=== PATIENT | female | born 1945 | race Caucasian/White ===

== ENCOUNTER 2017-02-11 11:10 | Emergency (ER) | payer MEDICARE ==
[2017-02-22] MEDS ORDERED: CALCIUM500 MG PO (11:48)
[2017-02-22] MEDS ORDERED: PRAVACHOL20 MG PO (11:48)
[2017-02-22] MEDS ORDERED: ASPIRIN EC81 MG PO (11:48)
[2017-02-22] MEDS ORDERED: MAGNESIUM250 M1 PO (11:49)
[2017-02-22] MEDS ORDERED: FISH OIL 1,2001 EAC1 PO (11:49)
--- NOTE | 2017-03-06 21:30 | ER ---
ADMIT: 02/11/2017 RM/LOC: ER [facility] MR#: [id number] [address] [facility] [address] [place] [id number] BETI CLARKE [address] [place] [address] Emergency Room Report SEX: F AGE: 71 : 1945 DATE: 02/11/2017 ADDENDUM: This patient comes into the ER because she had a syncopal episode and fell and cut her chin. She states she became dizzy, passed out and then when she woke up, she vomited. She states she has done this most of her life. Recently had a pacemaker put in and since the pacemaker, has not had syncope again. She denies any pain at this time and states she feels fine. She no longer has any nausea. I wanted to do a cardiac workup on the patient, the patient refused. I told her we could maybe interrogate her pacemaker. She said that she is able to do that at home over the phone and that is what she would like to do. She would only like her chin sewed up. I was concerned about this, I did consult with Dr. Navarro concerning treatment of this patient, he also talked to the patient and explained risks of her passing out and why it would be important to monitor in the ER. She once again refused saying that she had passing out her whole life and this is how she normally feels and would only like us to fix her chin and she will follow up with Dr. Ximena Elena tomorrow. Dr. Navarro also recommended that she call her stroke program coordinator tomorrow as well. To the laceration on the chin, I placed LAT to the area and after 20 minutes, I placed 3 interrupted stitches using 5-0 Prolene. Stitches are to be removed in 5 days. DIAGNOSES: 1. Syncope. 2. 1 cm chin laceration. Please see my T sheet. ALLIE Paige / Raul Navarro MD / modl JOB #: [id number] CC: Raul Navarro MD, Attending Physician Ximena Briggs, Family Physician
== END 2017-02-11 12:15 | disposition home or self-care (01) ==
LOC: ER 11:10
PROC: 0HQ1XZZ Repair Face Skin, External Approach (ICD-10-PCS; principal; 2017-02-11)
DX: S01.81XA Laceration without foreign body of other part of head, initial encounter (principal); R55 Syncope and collapse; Z79.899 Other long term (current) drug therapy; W19.XXXA Unspecified fall, initial encounter; Y92.009 Unspecified place in unspecified non-institutional (private) residence as the place of occurrence of the external cause

== ENCOUNTER 2017-02-20 10:07 | Observation (INO) | payer MEDICARE ==
[~2017-02-20] VITALS: Ht 162.6 cm; Wt 64.8 kg
[2017-02-22] MEDS ORDERED: CALCIUM500 MG PO (11:48)
[2017-02-22] MEDS ORDERED: ASPIRIN EC81 MG PO (11:48)
[2017-02-22] MEDS ORDERED: PRAVACHOL20 MG PO (11:48)
[2017-02-22] MEDS ORDERED: FISH OIL 1,2001 EAC1 PO (11:49)
[2017-02-22] MEDS ORDERED: MAGNESIUM250 M1 PO (11:49)
--- NOTE | 2017-03-02 16:22 | HP ---
ADMIT: 02/20/2017 RM/LOC: 418 [facility] MR#: [id number] [address] [address] BETI CL[address]KE [address] [place] [address] History and Physical SEX: F AGE: 71 : 1945 DATE OF SERVICE: CHIEF COMPLAINT: Chest pain. HISTORY OF PRESENT ILLNESS: A 71-year-old, female, with complaints of chest pain starting today. The pain is in the substernal region, does not radiate. She is unable to identify any specific aggravating or relieving factors. Pain persisted throughout the morning, she felt the pain was worsening, so she went to the emergency room for further evaluation. No associated nausea or vomiting. No associated palpitations, lightheadedness, dizziness, syncope, or presyncope. No associated dyspnea. In the emergency room, she had a chest x-ray, which was negative. White blood cell count elevated at 12.2. CT of the chest was negative for pulmonary emboli, but was positive for bilateral interstitial and ground-glass opacities. She had been in her usual state of health up until the last week. She initially had a sore throat and some congestion starting around February 06. The symptoms persisted. No fevers or chills, she ended up developing a significant cough, she had chest and abdominal soreness from her coughing. The coughing symptoms have been subsiding over the last several days. On February 11, she had a syncopal episode, ended up in the emergency room for evaluation. She had been at home, using the restroom, she was constipated and straining. She finished using the toilet, stood up, washed her hands and was leaving the bathroom. As she was walking down the hallway, she had feeling of lightheadedness and weakness, felt like everything was closing in around her, she ended up on the floor. Per the patient, reported that she was unconscious. She ended up having an episode of emesis also. She suffered a small laceration to her chin at the time of the fall. In the emergency room, she was evaluated, she declined cardiac evaluation. She did get the sutures to the laceration on her chin. It was recommended she be admitted to the hospital; however, she declined admission and went home. On the morning of February 12, she had a similar episode after using the toilet, she denied having any straining or difficulty using the restroom at that time. As she was leaving the bathroom again she felt very lightheaded, weak, felt like the room may be closing in on her; however, she did not lose consciousness, no nausea or vomiting. She had one other episode similar to this occurring last summer. She had finished golfing and was riding home in the car, felt lightheaded and weak, felt like the room was closing in on her and she had a syncopal episode again associated with nausea. She was not evaluated for this at that time. She has a prior history of syncope, she has a history of advanced heart block and had an episode of sinus arrest causing syncope in 2012, she had a pacemaker placed at that time. Prior to that, she had several episodes of syncope. She has not had any syncope since pacemaker placement until this past year. On February 13, she was evaluated at [facility]. Pacemaker was interrogated, no identifiable cause for her syncope based on interrogation. She underwent a carotid ultrasound, which was unremarkable, has mild disease bilaterally. She is scheduled to have an MRI as an outpatient but has not had this done yet. ADMIT: 02/20/2017 RM/LOC: 418 [facility] MR#: [id number] [address] [address] [place] [address] History and Physical SEX: F AGE: 71 : 1945 ALLERGIES: NO KNOWN ALLERGIES. PAST MEDICAL HISTORY: 1. Hypertension. 2. Dyslipidemia. 3. History of sinus arrest and heart block, status post permanent pacemaker placement. HOME MEDICATIONS: 1. Aspirin 81 mg 2 tabs daily. 2. Calcium with vitamin D 2 tabs daily. 3. Fish oil 1000 mg 2 tabs daily. 4. Losartan 50 mg daily. 5. Multivitamin daily. 6. Pravastatin 40 mg daily. SOCIAL HISTORY: , retired, lives at home with her , enjoys playing golf. No tobacco abuse. FAMILY MEDICAL HISTORY: Positive for heart disease and congestive heart failure in father. REVIEW OF SYSTEMS: As per PMH and HPI, remainder of 10-point review of systems is negative. PHYSICAL EXAMINATION: VITAL SIGNS: Blood pressure 110/63, pulse 81, respirations 16, temp 99.9, and O2 saturation 92% on room air. CONSTITUTIONAL: This is a pleasant 71-year-old, female, appearance is appropriate for age, no acute distress at this time. HEAD: Normocephalic atraumatic. EYES: EOMs intact. Sclerae clear. Conjunctivae clear. PERRLA. MOUTH AND THROAT: Oral mucosa is pink and moist. Posterior oropharynx clear. NECK: Supple. Bilateral carotid pulses 2+, no JVD. HEART: S1, S2. Regular rate and rhythm without murmur, no S3 or S4. No edema to lower extremities. PULMONARY: Lungs are clear throughout bilateral estrada, has a few scattered rales to the bilateral posterior bases, no wheezes. Respirations are unlabored. ABDOMEN: Soft, nontender. Bowel sounds are present throughout all quadrants, no organomegaly, no masses. GENITOURINARY: Deferred. MUSCULOSKELETAL: Moves all extremities, strength equal and adequate to bilateral upper and lower extremities. Palpation of chest wall mildly reproduces some of her chest pain symptoms. NEUROLOGICAL: Alert and oriented x3. Speech clear. Memory intact. Cranial nerves II through XII grossly intact. ADMIT: 02/20/2017 RM/LOC: 418 [facility] MR#: [id number] [address] [place], [place] [address] [id number] [address] [place], [place] [id number] History and Physical SEX: F AGE: 71 : 1945 LABORATORY AND X-RAY DATA: White blood cell count 12.2, hemoglobin 12.5, hematocrit 37.4, and platelet count 289,000. Electrolytes; sodium 143, potassium 4.0, chloride 109, carbon dioxide 25, BUN 20, creatinine 1.1, and glucose 120. CPK, MB, and troponin are negative. Respiratory panel, positive for influenza B. Chest x-ray is negative. CT of the chest negative for pulmonary emboli. Bilateral interstitial and ground-glass pulmonary opacities are present. Borderline prominent mediastinal lymph nodes. IMPRESSION: 1. Chest pain. 2. Influenza B. 3. Syncope. 4. Hypertension. 5. Hyperlipidemia. 6. History of permanent pacemaker. PLAN: With her symptoms and her recent syncopal episodes, we will admit to the hospital for further evaluation and treatment. We will obtain serial cardiac enzymes and rule out for SC. She had recent pacemaker interrogation with [facility], which was negative. Carotid ultrasound was also negative. With her recent syncopal episode, we will also refer for MRI of the brain as she does have the pacemaker compatible device. Regarding her influenza B, she has had symptoms present for greater than 48 hours, we will continue with symptomatic treatment. We will add DuoNeb. She has had some mild nausea earlier today, will start with a clear liquid diet and advance diet as tolerated. We will also check a set of orthostatic blood pressures. Condition at this time is stable, although will need ongoing evaluation as an outpatient to further work up her syncope. The patient has been assessed and managed with Dr. Mckinney. Ximena Abreu APRN / Yainck Mckinney MD / karen JOB #: [id number] CC: Yanick Mckinney, Attending Physician Yanick Mckinney, Family Physician
--- NOTE | 2017-03-07 15:27 | ER ---
ADMIT: 02/20/2017 RM/LOC: 418 [facility] MR#: [id number] [address] [facility] [address] [address] CL[address]KE [address] [place] [address] Emergency Room Report SEX: F AGE: 71 : 1945 DATE: 02/20/2017 ADDENDUM: A 71-year-old white female, coming in with chest pain. Worked up as cardiac. EKG, chest x-ray, lab essentially is negative. She has white count of 12.2. CTA did not show a clot, does show nonspecific perihilar inflammatory process, unknown etiology. I spoke with Dr. Yanick Mckinney, he is going to admit. We have titrated morphine in her just to control her pain. CONDITION ON DISCHARGE: Fair. Tony Chang MD/ modl JOB #: [id number] CC: Yanick Mckinney MD, Attending Physician Yanick Mckinney MD, Family Physician
== END 2017-02-21 14:50 | disposition home or self-care (01) ==
LOC: ER 10:07 → 4PCU 12:50
PROVIDERS: ADMIT Internal Medicine
DX: R07.9 Chest pain, unspecified (principal); J10.1 Influenza due to other identified influenza virus with other respiratory manifestations; I95.9 Hypotension, unspecified; R55 Syncope and collapse; E78.5 Hyperlipidemia, unspecified; Z95.0 Presence of cardiac pacemaker; I10 Essential (primary) hypertension; Z79.82 Long term (current) use of aspirin; Z79.899 Other long term (current) drug therapy

== ENCOUNTER → 2017-02-23 | Outpatient (CLI) | payer MEDICARE ==
[~2017-02-23] MED LIST: ASPIRIN EC81 MG PO; CALCIUM500 MG PO; FISH OIL 1,2001 EAC1 PO; MAGNESIUM250 M1 PO; PRAVACHOL20 MG PO
== END | disposition home or self-care (01) ==
LOC: RAD.S 12:15
DX: R55 Syncope and collapse (principal); G93.89 Other specified disorders of brain